=== PATIENT | male | born 1975 | race Caucasian/White ===

== ENCOUNTER 2016-09-29 01:37 | Emergency (ER) | payer OTHER ==
[~2016-09-29] VITALS: Ht 177.8 cm; Wt 93.2 kg
[~2016-09-29 01:37] MED LIST: CLINDAMYCIN HC300 MG PO; PERCOCET 5/31 TABLET PO
[2016-09-29 02:03] LABS: HEMATOCRIT 40.7 % (38.0-50.0); MCHC 34.9 G/DL (30.0-36.0); MCV 85.9 FL (86-99); MEAN PLAT.VOLUME 9.7 uM^3 (9.0-12.4); PLATELET COUNT 244 K/uL (156-360); RBC DIS.WIDTH-CV 13.3 % (11.8-14.6); RBC DIS.WIDTH-SD 40.9 % (39-53); RED BLOOD COUNT 4.74 M/uL (4.00-5.50); WHITE BLOOD COUNT 10.1 K/uL (4.1-10.2)
[2016-09-29 02:13] LABS: CHLORIDE 104 mEq/L (99-109); POTASSIUM 3.4 mEq/L (3.7-5.4); SODIUM 141 mEq/L (136-147)
[2016-09-29 02:15] LABS: GLUCOSE 94 mg/dL (70-99)
[2016-09-29 02:16] LABS: ANION GAP 10 MEQ/L (2-14)
[2016-09-29 02:19] LABS: GFR ESTIMATE (CALCULATED) > 59 mL/min/
[2016-09-29 02:20] LABS: UREA NITROGEN (BUN) 12 mg/dL (9-23)
[2016-09-29 02:52] LABS: INTERNAL CONTROL VALID? YES
[2016-09-29 03:20] LABS: C DIFF TOXIN POSITIVE (NEGATIVE)
[2016-09-29 03:37] LABS: PROBE CHECK PASS
[2016-09-29] MEDS ORDERED: FLAGYL500 MG PO (03:59)
[2016-09-29 04:23] LABS: TOTAL BILIRUBIN 0.3 mg/dL (0.0-1.0)
[2016-09-29 04:24] LABS: ALKALINE PHOSPHATASE 65 IU/L (3-129)
[2016-09-29 04:27] LABS: DIRECT BILIRUBIN 0.1 mg/dL (0.0-0.3)
[2016-09-29 04:28] LABS: LIPASE 11 U/L (1.0-51.0)
[2016-09-29 04:49] VITALS: BP 121/80
== END 2016-09-29 05:03 | disposition home or self-care (01) ==
LOC: EME 01:37
PROVIDERS: Physician Assistant
DX: A04.7 Enterocolitis due to Clostridium difficile (principal); E86.0 Dehydration; F17.200 Nicotine dependence, unspecified, uncomplicated
CPT/HCPCS: 80048; 80076; 81003; 83630; 83690; 85027; 87177; 87493; 87506; 99281; 99285; J7030

== ENCOUNTER 2017-02-22 14:05 | Emergency (ER) | payer OTHER ==
[~2017-02-22] VITALS: Ht 175.3 cm; Wt 103.0 kg
[~2017-02-22 14:05] MED LIST changes: +FLAGYL500 MG PO
[2017-02-22 16:52] VITALS: BP 140/89
== END 2017-02-22 16:54 | disposition home or self-care (01) ==
LOC: EME 14:05
DX: S92.505A Nondisplaced unspecified fracture of left lesser toe(s), initial encounter for closed fracture (principal); W18.41XA Slipping, tripping and stumbling without falling due to stepping on object, initial encounter
CPT/HCPCS: 73630; 99281; 99283